=== PATIENT | female | born 1970 | race Caucasian/White ===

== ENCOUNTER 2018-05-24 19:19 | Emergency (ER) | payer MEDICAID ==
[~2018-05-24] VITALS: Ht 152.4 cm; Wt 67.0 kg
[2018-05-24] MEDS ORDERED: ACETAMINOPHEN WITH CODEINE 300/30MG TABLET PO ONE (20:15)
[2018-05-24] MEDS ORDERED: BENZONATATE 100MG CAPSULE PO ONE (20:15)
[2018-05-24 20:49] LABS: CLARITY URINE CLEAR (CLEAR); COLOR URINE YELLOW (YELLOW); KETONES URINE NEGATIVE (NEGATIVE); LEUKOCYTE ESTERASE URINE NEGATIVE (NEGATIVE); NITRITE URINE NEGATIVE (NEGATIVE); OCCULT BLOOD URINE 2+ (NEGATIVE); PH URINE 5.5 (4.5-8.0); PROTEIN URINE NEGATIVE (NEGATIVE); UROBILINOGEN URINE 0.2 E.U./dL (0.2-1.0)
[2018-05-24 22:00] VITALS: BP 141/74
== END 2018-05-24 22:30 | disposition home or self-care (01) ==
LOC: ER 19:19
DX: B34.9 Viral infection, unspecified (principal); M54.5 Low back pain; E78.00 Pure hypercholesterolemia, unspecified; J02.9 Acute pharyngitis, unspecified; Z98.890 Other specified postprocedural states
CPT/HCPCS: 81025; 99283